=== PATIENT | male | born 1995 | race Caucasian/White ===

== ENCOUNTER 2020-05-15 19:47 | Emergency (ER) | payer SELFPAY ==
[2020-05-15 19:54] VITALS: BP 116/70; PULSE 102; RESP 22; TEMP 36.7; O2SAT 100
--- NOTE | 2020-05-15 20:10 | ED.SKABFB ---
HPI - Skin/Abscess/Foreign Bdy <RAYMOND Ya - Last Filed: 05/15/20 21:48> General Chief complaint: Skin/Abscess/Foreign Body Stated complaint: Skin Flare Up, Eczema Time Seen by Provider: 05/15/20 19:53 Source: patient Mode of arrival: Ambulatory History of Present Illness HPI narrative: 24yo male presents to the ED for exacerbation of eczema. Patient states he had an exacerbation at the beginning of April, had a course of steroid that ended approximately on April 25. Patient states over the past 2 days he did notice increasing itching, redness, pain. Patient states today it is become severe, he states this has happened once in the past. Patient states the pain is significant, it is difficult to move his arms as it feels like his skin is burning. He denies any fevers, chills, nausea, vomiting, diarrhea, chest pain, shortness of breath, or any other concerns. Patient appears in significant pain. Related Data Previous Rx's Medication Instructions Recorded doxycycline hyclate 100 mg PO BID 7 Days #14 cap 05/15/20 prednisone 10 mg PO DAILY #47 tab 05/15/20 Allergies Allergy/AdvReac Type Severity Reaction Status Date / Time amoxicillin Allergy Verified 05/15/20 19:58 Penicillins Allergy Verified 05/15/20 19:58 Review of Systems <RAYMOND Ya - Last Filed: 05/15/20 21:48> Review of Systems Narrative: REVIEW OF SYSTEMS: GENERAL: Denies fever or chills. HENT: Denies headaches or rhinorrhea. MUSCULOSKELETAL: Denies trauma or pain. INTEGUMENTARY: Reports rash with significant pain, see HPI. Patient History <RAYMOND Ya - Last Filed: 05/15/20 21:48> Medical History Eczema (Acute) Social History Smoking Status: Current every day smoker Smoking Status: Current every day smoker Exam <RAYMOND Ya - Last Filed: 05/15/20 21:48> Initial Vital Signs Initial Vital Signs: Vital Signs Temperature 98.0 F 05/15/20 19:54 Pulse Rate 102 H 05/15/20 19:54 Respiratory Rate 22 10/05/20 19:54 Blood Pressure 116/70 05/15/20 19:54 Pulse Oximetry 100 05/15/20 19:54 PHYSICAL EXAMINATION: GENERAL: Alert, and cooperative. Answers questions promptly and appropriately. HENT: Normocephalic, atraumatic. RESPIRATORY: Normal respiratory rate, trachea midline, airway patent. No stridor, nasal flaring or accessory muscle use. MUSCULOSKELETAL: Normal gait and coordination. Equal tone and mass bilaterally. EXTREMITIES: CMS intact. Moves all extremities. SKIN: Warm, dry, soft, appropriate color for ethnicity. Significant erythema noted to bilateral arms, chest, back and legs, dry skin with patches of excoriation and scratch bustos. NEURO: Alert and Oriented X 3. Good coordination. PSYCH: Appropriate affect and mood. <Ramy Rudolph DO - Last Filed: 05/16/20 06:35> Initial Vital Signs Initial Vital Signs: Vital Signs Temperature 98.0 F 05/15/20 19:54 Pulse Rate 102 H 05/15/20 19:54 Respiratory Rate 22 05/15/20 19:54 Blood Pressure 116/70 05/15/20 19:54 Pulse Oximetry 100 05/15/20 19:54 Course <RAYMOND Ya - Last Filed: 05/15/20 21:48> Course Course Narrative: Upon re-evaluation post medication administration, patient's rash significantly improved, decreased erythema and swelling. Patient was given the 1st dose of doxycycline to cover for super infection. He is encouraged to follow up with his entry level programmer as soon as possible. Patient agreed to plan of care, reports improvement pain, minor improvement in pruritus. Orders Ordered: Discontinued Medications Diphtheria/Tetanus/Acell Pertussis (Adacel) 0.5 ml IM .ONCE ONE Stop: 05/15/20 20:33 Last Admin: 05/15/20 20:42 Dose: 0.5 ml Documented by: KGALLAG Doxycycline Hyclate (Vibramycin) 100 mg PO NOW ONE Stop: 05/15/20 20:57 Last Admin: 05/15/20 20:58 Dose: 100 mg Documented by: SENAALLCYNTHIA Hydroxyzine Pamoate (Vistaril) 25 mg PO NOW ONE Stop: 05/15/20 20:09 Last Admin: 05/15/20 20:22 Dose: 25 mg Documented by: KGALLAG Sodium Chloride (Normal Saline 0.9%) 1,000 mls @ 1,000 mls/hr IV BOLUS ONE Stop: 05/15/20 21:07 Last Infusion: 05/15/20 21:38 Dose: 0 mls/hr Documented by: Admin: 05/15/20 20:23 Dose: 1,000 mls/hr Documented by: ORIN Ketorolac Tromethamine (Toradol) 30 mg IV NOW ONE Stop: 05/15/20 20:09 Last Admin: 05/15/20 20:23 Dose: 30 mg Documented by: ORIN Methylprednisolone (Solu-Medrol 125 Mg Vial) 125 mg IV NOW ONE Stop: 05/15/20 20:09 Last Admin: 05/15/20 20:22 Dose: 125 mg Documented by: ORIN Consultations Consultation #1: Patient staffed with Dr. Rudolph Vital Signs Vital signs: Vital Signs - 8 hr 05/15/20 19:54 05/15/20 21:38 Temperature 98.0 F Pulse Rate 102 H 79 Respiratory Rate 22 16 Blood Pressure 116/70 103/70 Pulse Oximetry 100 99 <Ramy Rudolph, DO - Last Filed: 05/16/20 06:35> Orders Ordered: Discontinued Medications Diphtheria/Tetanus/Acell Pertussis (Adacel) 0.5 ml IM .ONCE ONE Stop: 05/15/20 20:33 Last Admin: 05/15/20 20:42 Dose: 0.5 ml Documented by: ORIN Doxycycline Hyclate (Vibramycin) 100 mg PO NOW ONE Stop: 05/15/20 20:57 Last Admin: 05/15/20 20:58 Dose: 100 mg Documented by: ORIN Hydroxyzine Pamoate (Vistaril) 25 mg PO NOW ONE Stop: 05/15/20 20:09 Last Admin: 05/15/20 20:22 Dose: 25 mg Documented by: ORIN Sodium Chloride (Normal Saline 0.9%) 1,000 mls @ 1,000 mls/hr IV BOLUS ONE Stop: 05/15/20 21:07 Last Infusion: 05/15/20 21:38 Dose: 0 mls/hr Documented by: Admin: 05/15/20 20:23 Dose: 1,000 mls/hr Documented by: ORIN Ketorolac Tromethamine (Toradol) 30 mg IV NOW ONE Stop: 05/15/20 20:09 Last Admin: 05/15/20 20:23 Dose: 30 mg Documented by: ORIN Methylprednisolone (Solu-Medrol 125 Mg Vial) 125 mg IV NOW ONE Stop: 05/15/20 20:09 Last Admin: 05/15/20 20:22 Dose: 125 mg Documented by: ORIN Vital Signs Vital signs: Vital Signs - 8 hr 05/15/20 19:54 05/15/20 21:38 Temperature 98.0 F Pulse Rate 102 H 79 Respiratory Rate 22 16 Blood Pressure 116/70 103/70 Pulse Oximetry 100 99 MDM - Skin/Abscess/Foreign Bdy <RAYMOND Ya - Last Filed: 05/15/20 21:48> Medical Records Attestation: I reviewed the patient's medical records. Lab Data Attestation: I reviewed the patient's lab results. Result diagrams: 05/15/20 20:15 05/15/20 20:15 Labs: Lab Results 05/15/20 05/15/20 05/15/20 Range/Units 20:15 20:15 20:15 WBC 10.4 (4.5-11.0) X10^3/uL RBC 4.93 (4.5-5.9) X10^6/uL Hgb 15.1 (13.5-17.5) g/dL Hct 44.3 (41-53) % MCV 90.0 (80-100) fL MCH 30.7 (26-34) PG MCHC 34.1 (30-36) % RDW 13.8 (11.6-14.8) % Plt Count 349 (150-400) X10^3/uL Neut % (Auto) 62.2 (50-75) % Lymph % (Auto) 12.5 L (25-40) % [place] % (Auto) 7.2 (3-14) % Eos % (Auto) 17.7 H (2-4) % Baso % (Auto) 0.4 (0-2) % Neut # (Auto) 6400 (6951-9013) /uL Lymph # (Auto) 1300 (0619-1122) /uL [place] # (Auto) 700 (0-900) /uL Eos # (Auto) 1800 H (0-450) /uL Baso # (Auto) 0 (0-100) /uL Sodium 140 (137-145) mmol/L Potassium 4.0 (3.4-5.1) mmol/L Chloride 106 (98-107) mmol/L Carbon Dioxide 27 (22-32) mmol/L BUN 9 (9-20) mg/dL Creatinine 0.80 (0.66-1.25) mg/dL Estimated GFR > 60.0 (>60) mL/min BUN/Creatinine Ratio 11.3 (6-22) Glucose 92 (70-100) mg/dL Lactate 1.4 (0.7-2.1) mmol/L Calcium 8.8 (8.4-10.2) mg/dL Total Bilirubin 0.4 (0.2-1.3) mg/dL AST 37 (17-59) IU/L ALT 21 (<50) IU/L Alkaline Phosphatase 88 (38-126) U/L Total Protein 7.4 (6.3-8.2) g/dL Albumin 4.2 (3.5-5.0) g/dL Globulin 3.2 (1.7-4.1) g/dL Albumin/Globulin Ratio 1.3 (1.0-2.8) MDM Narrative Medical decision making narrative: History and examination are consistent with significant eczema exacerbation, increasing concern for superimposed infection due to amount of excoriation and worsening erythema around arms. Patient was given doxycycline to treat for this. He was given a taper of prednisone to help with symptoms. Patient has a hydroxyzine, declined need for more. Return precautions given for new or worsening symptoms. Less likely sepsis due to normal lactic acid and white blood cell count, patient afebrile and not tachycardic. Agrees to plan of care verbalized understanding. <Ramy Rudolph, DO - Last Filed: 05/16/20 06:35> Lab Data Labs: Lab Results 05/15/20 05/15/20 05/15/20 Range/Units 20:15 20:15 20:15 WBC 10.4 (4.5-11.0) X10^3/uL RBC 4.93 (4.5-5.9) X10^6/uL Hgb 15.1 (13.5-17.5) g/dL Hct 44.3 (41-53) % MCV 90.0 (80-100) fL MCH 30.7 (26-34) PG MCHC 34.1 (30-36) % RDW 13.8 (11.6-14.8) % Plt Count 349 (150-400) X10^3/uL Neut % (Auto) 62.2 (50-75) % Lymph % (Auto) 12.5 L (25-40) % [place] % (Auto) 7.2 (3-14) % Eos % (Auto) 17.7 H (2-4) % Baso % (Auto) 0.4 (0-2) % Neut # (Auto) 6400 (4759-1434) /uL Lymph # (Auto) 1300 (5499-5273) /uL [place] # (Auto) 700 (0-900) /uL Eos # (Auto) 1800 H (0-450) /uL Baso # (Auto) 0 (0-100) /uL Sodium 140 (137-145) mmol/L Potassium 4.0 (3.4-5.1) mmol/L Chloride 106 (98-107) mmol/L Carbon Dioxide 27 (22-32) mmol/L BUN 9 (9-20) mg/dL Creatinine 0.80 (0.66-1.25) mg/dL Estimated GFR > 60.0 (>60) mL/min BUN/Creatinine Ratio 11.3 (6-22) Glucose 92 (70-100) mg/dL Lactate 1.4 (0.7-2.1) mmol/L Calcium 8.8 (8.4-10.2) mg/dL Total Bilirubin 0.4 (0.2-1.3) mg/dL AST 37 (17-59) IU/L ALT 21 (<50) IU/L Alkaline Phosphatase 88 (38-126) U/L Total Protein 7.4 (6.3-8.2) g/dL Albumin 4.2 (3.5-5.0) g/dL Globulin 3.2 (1.7-4.1) g/dL Albumin/Globulin Ratio 1.3 (1.0-2.8) Discharge Plan Departure Patient Disposition: Home Clinical Impression: Eczema Qualifiers: Eczema type: unspecified Qualified Code(s): L30.9 - Dermatitis, unspecified Cellulitis Qualifiers: Site of cellulitis: unspecified site Qualified Code(s): L03.90 - Cellulitis, unspecified Discharge Date/Time: 05/15/20 21:37 Instructions: DI for Atopic Dermatitis-Adult Activity Restrictions/Additional Instructions: Thank you for entrusting me with your care today. As discussed, your symptoms are most likely related to an eczema flare. I have given you an antibiotic and steroid, please take these as directed. Call your entry level programmer office soon as possible to schedule appointment in the next few weeks. Apply lotions to skin multiple times a day. Return emergency department for any new or worsening symptoms. Prescriptions: New doxycycline hyclate 100 mg capsule 100 mg PO BID 7 Days Qty: 14 RF: 0 prednisone 10 mg tablet 10 mg PO DAILY Qty: 47 RF: 0 <Ramy Rudolph DO - Last Filed: 05/16/20 06:35> Cosign ED Attending Cosignature Attestation: I was immediately available in the department for consultation. This documentation has been reviewed and I agree with assessment and plan. Supervised by Ramy Rudolph DO
[2020-05-15 20:22] LABS: Add Manual Diff / Slide Review NO; Basophils Absolute Auto 0 /uL (0-100); Basophils Percent Auto 0.4 % (0-2); Eosinophils Absolute Auto 1800 /uL (0-450); Eosinophils Percent Auto 17.7 % (2-4); Hematocrit 44.3 % (41-53); Hemoglobin 15.1 g/dL (13.5-17.5); Lymphocytes Absolute Auto 1300 /uL (1100-4500); Lymphocytes Percent Auto 12.5 % (25-40); Mean Corpuscular HGB Conc 34.1 % (30-36); Mean Corpuscular Hemoglobin 30.7 PG (26-34); Monocytes Absolute Auto 700 /uL (0-900); Monocytes Percent Auto 7.2 % (3-14); Neutrophils Absolute Auto 6400 /uL (1500-7000); Neutrophils Percent Auto 62.2 % (50-75); Platelet Count 349 X10^3/uL (150-400); Red Blood Cell Count 4.93 X10^6/uL (4.5-5.9); Red Cell Distribution Width 13.8 % (11.6-14.8); White Blood Cell Count 10.4 X10^3/uL (4.5-11.0)
[2020-05-15] MEDS: hydrOXYzine pamoate 25 MG CAPSULE PO (20:22)
[2020-05-15] MEDS: methylPREDNISolone 125 MG/2 ML VIAL IV (20:22)
[2020-05-15] MEDS: SODIUM CHLORIDE 0.9% 1,000 ML 1000 ML IV (20:23)
[2020-05-15] MEDS: KETOROLAC 60 MG/2 ML VIAL 30 MG IV (20:23)
[2020-05-15] MEDS: TET,DIPH,PERTUSS(ACELL),VAC/PF 0.5 ML SYRINGE IM (20:42)
[2020-05-15 20:48] LABS: Alanine Aminotransferase 21 IU/L (<50); Albumin 4.2 g/dL (3.5-5.0); Albumin Globulin Ratio 1.3 (1.0-2.8); Alkaline Phosphatase 88 U/L (38-126); Aspartate Aminotransferase 37 IU/L (17-59); BUN Creatinine Ratio 11.3 (6-22); Bilirubin Total 0.4 mg/dL (0.2-1.3); Blood Urea Nitrogen 9 mg/dL (9-20); Calcium 8.8 mg/dL (8.4-10.2); Carbon Dioxide 27 mmol/L (22-32); Chloride 106 mmol/L (98-107); Estimated Glomerular Filt Rate > 60.0 mL/min (>60); Globulin 3.2 g/dL (1.7-4.1); Glucose 92 mg/dL (70-100); HEMOLYSIS 17 (0-50); Sodium 140 mmol/L (137-145); Total Protein 7.4 g/dL (6.3-8.2)
[2020-05-15 20:49] LABS: Lactate (Lactic Acid) 1.4 mmol/L (0.7-2.1)
[2020-05-15] MEDS: DOXYCYCLINE HYCLATE 100 MG TABLET PO (20:58)
[2020-05-15 21:38] VITALS: BP 103/70; PULSE 79; RESP 16; O2SAT 99
== END 2020-05-15 21:37 | disposition home or self-care (01) ==
PROVIDERS: Emergency Provider Nurse Practitioner
DX: L30.9 Dermatitis, unspecified (principal); L03.90 Cellulitis, unspecified; Z23 Encounter for immunization
CPT/HCPCS: 36415; 80053; 83605; 85025; 90471; 96361; 96374; 96375; 99284; 90715; J1885; J2930

== ENCOUNTER 2020-06-14 22:16 | Emergency (ER) | payer SELFPAY ==
[2020-06-14 22:29] VITALS: BP 131/59; PULSE 111; RESP 20; TEMP 36.9; O2SAT 98; BMI 25.0
--- NOTE | 2020-06-15 02:01 | PC.NURSE ---
0122- Called for patient, no response. Not in lobby.
--- NOTE | 2020-06-15 08:09 | ED.SKABFB ---
HPI - Skin/Abscess/Foreign Bdy General Chief complaint: Skin/Abscess/Foreign Body Stated complaint: lump above left eyebrow, growing Source: patient Mode of arrival: Ambulatory Related Data Previous Rx's Medication Instructions Recorded prednisone 10 mg PO DAILY #47 tab 05/15/20 Allergies Allergy/AdvReac Type Severity Reaction Status Date / Time amoxicillin Allergy Verified 05/15/20 19:58 Penicillins Allergy Verified 05/15/20 19:58 Patient History Medical History (Updated 06/15/20 @ 02:11 by Karen Leal RN) Eczema (Acute) Social History Smoking Status: Former smoker Smoking Status: Former smoker alcohol intake frequency: 0-2 drinks per day Substance Use Type: marijuana Exam Initial Vital Signs Initial Vital Signs: Vital Signs Temperature 98.5 F 06/14/20 22:29 Pulse Rate 111 H 06/14/20 22:29 Respiratory Rate 20 06/14/20 22:29 Blood Pressure 131/59 L 06/14/20 22:29 Pulse Oximetry 98 06/14/20 22:29 Discharge Plan Departure Patient Disposition: Left Without Being Seen Clinical Impression: Patient left without being seen Discharge Date/Time: 06/15/20 02:11
== END 2020-06-15 02:11 | disposition left against medical advice (07) ==
PROVIDERS: Emergency Provider Emergency Medicine
CPT/HCPCS: 99281